=== PATIENT | female | born 1985 | race African-American/Black ===

== ENCOUNTER 2017-09-18 21:00 | Inpatient (IN) | payer OTHER ==
[2017-09-18 21:46] VITALS: BMI 38.7
[2017-09-18] MEDS ORDERED: Lactated Ringer's 1,000 ML IV SCH (22:44)
[2017-09-18] MEDS ORDERED: Promethazine HCl 25 MG/ML VIAL IM PRN (22:44)
[2017-09-18] MEDS ORDERED: Ondansetron HCl/PF 4 MG/2 ML Vial IVP PRN (22:44)
[2017-09-18] MEDS ORDERED: Acetaminophen 500 MG TAB PO PRN (22:44)
[2017-09-18 22:55] LABS: Hemoglobin 12.4 g/dL (12.0-16.0); Mean Corpuscular HGB CONC 33.2 g/dL (32.0-36.0); Mean Corpuscular Hemoglobin 29.7 pg (27.0-31.0); Mean Corpuscular Volume 89.5 fL (78.0-98.0); Mean Platelet Volume 9.9 fL (7.4-10.4); Platelet Count 211 thou/uL (130-400); RBC Distribution Width 12.2 % (11.5-14.5); Red Blood Cell (RBC) Count 4.16 mill/uL (4.20-5.40); White Blood Cell (WBC) Count 6.1 thou/uL (4.8-10.8)
[2017-09-18] MEDS ORDERED: Misoprostol 200 MCG TAB RC PRN (23:00)
[2017-09-18] MEDS ORDERED: NS w/ Oxytocin 10 units 500 ML IV SCH (23:00)
[2017-09-18] MEDS ORDERED: Lidocaine 1% (PF) 30 ML VIAL SC PRN (23:00)
[2017-09-18] MEDS ORDERED: Ibuprofen 800 MG TAB PO PRN (23:00)
[2017-09-18] MEDS ORDERED: hydrALAZINE 20 MG/ML VIAL ONE (23:10)
[2017-09-18] MEDS: hydrALAZINE 20 MG/ML VIAL SLOW IVP PRN (23:17)
[2017-09-18] MEDS: Lactated Ringer's 1,000 ML IV SCH (23:28)
[2017-09-18] MEDS: Misoprostol 100 MCG TAB VAG SCH (23:30)
[2017-09-18 23:35] LABS: ALT (SGPT) 9 U/L (8-55); AST (SGOT) 13 U/L (5-34); Albumin 3.3 g/dL (3.5-5.0); Alkaline Phosphatase 116 U/L (40-150); Anion Gap 16 mmol/L (10-20); BUN (Urea Nitrogen) 7 mg/dL (7.0-18.7); Bilirubin, Total 0.2 mg/dL (0.2-1.2); Calc. Creatinine Clearance 180 mL/min (70-130); Calcium 8.7 mg/dL (7.8-10.44); Carbon Dioxide 19 mmol/L (22-29); Chloride 107 mmol/L (98-107); Estimated GFR-MDRD Greater than 90; Globulin 3.1 g/dL (2.4-3.5); Glucose 90 mg/dL (70-105); Protein, Total 6.4 g/dL (6.0-8.3); Sodium 138 mmol/L (136-145)
[2017-09-18 23:36] LABS: HBSAg Index 0.17 S/CO (0-0.99); Hep B Surf Ag Non-Reactive S/CO (NonReactive); Syphilis Antibody Nonreactive (Nonreactive); Syphilis Antibody Index 0.05 S/CO (<1.00 Non-Reactive)
[2017-09-19] MEDS: hydrALAZINE 20 MG/ML VIAL SLOW IVP PRN ×5 (01:07→13:53)
[2017-09-19 01:11] LABS: Amphetamine Not Detected (NotDetected); Barbiturates Screen Not Detected (NotDetected); Benzodiazepine Screen Not Detected (NotDetected); Cocaine Metabolite Screen Not Detected (NotDetected); Medtox Control Line Valid? VALID (VALID); Medtox Reader # READER 4; Methadone Not Detected (NotDetected); Methamphetamine Not Detected (NotDetected); Opiate Screen Not Detected (NotDetected); Oxycodone Screen Not Detected (NotDetected); Phencyclidine (PCP) Not Detected (NotDetected); THC/Cannabinoid Screen Not Detected (NotDetected); Tricyclic Screen Not Detected (NotDetected)
[2017-09-19] MEDS: NS w/ Oxytocin 10 units 500 ML IV SCH ×2 (02:32→23:01)
[2017-09-19] MEDS: Misoprostol 100 MCG TAB VAG SCH ×5 (02:36→23:01)
[2017-09-19] MEDS: Lactated Ringer's 1,000 ML IV SCH ×3 (05:36→23:00)
[2017-09-19] MEDS ORDERED: Butorphanol Tartrate 1 MG/ML VIAL ONE ×3 (06:40→10:13)
[2017-09-19] MEDS ORDERED: Butorphanol Tartrate 1 MG/ML VIAL SLOW IVP PRN (06:54)
[2017-09-19] MEDS ORDERED: Bupivacaine 0.5% 20 ML, fentaNYL Citrate/PF 400 MCG in Sodium Chloride 0.9% 72 ML EPIDURAL SCH (07:45)
[2017-09-19] MEDS ORDERED: DISCONTINUE ALL PREVIOUS NARCOTICS FS SCH (07:45)
[2017-09-19] MEDS: NS / Oxytocin 40 units/1000ml 1,000 ML IV SCH ×2 (13:53→14:47)
[2017-09-19] MEDS ORDERED: Lanolin Ointment 7 GM TUBE TOP PRN (15:00)
[2017-09-19] MEDS ORDERED: Methylergonovine 0.2 MG/ML VIAL IM PRN (15:00)
[2017-09-19] MEDS ORDERED: Zolpidem Tartrate 5 MG TAB PO PRN (15:00)
[2017-09-19] MEDS ORDERED: Sodium Chloride 0.9% 1,000 ML IV SCH (15:00)
[2017-09-19] MEDS ORDERED: Ondansetron HCl/PF 4 MG/2 ML Vial IVP PRN (15:00)
[2017-09-19] MEDS ORDERED: NS / Oxytocin 40 units/1000ml 1,000 ML IV SCH (15:00)
[2017-09-19] MEDS ORDERED: Preparation H Ointment 28 GM TUBE PR PRN (15:00)
[2017-09-19] MEDS ORDERED: diphenhydrAMINE 25 MG CAP PO PRN (15:00)
[2017-09-19] MEDS ORDERED: Promethazine HCl 25 MG/ML VIAL IM PRN (15:00)
[2017-09-19] MEDS ORDERED: Methylergonovine 0.2 MG TAB PO PRN (15:00)
[2017-09-19] MEDS ORDERED: Adacel (T-DAP) 0.5 ML VIAL IM SCH (15:00)
[2017-09-19] MEDS ORDERED: Bisacodyl 10 MG SUPP PR PRN (15:00)
[2017-09-19] MEDS ORDERED: HYDROcodone/Acetaminophen 5/325 mg Tablet PO PRN ×2 (15:00)
[2017-09-19] MEDS ORDERED: Milk Of Magnesia 30 ML UDCUP PO PRN (15:00)
[2017-09-19] MEDS ORDERED: Misoprostol 200 MCG TAB VAG PRN (15:03)
[2017-09-19] MEDS: Ferrous Sulfate 325 MG TAB PO SCH (15:52)
[2017-09-19] MEDS: Docusate Calcium (SURFAK) 240 MG CAP PO SCH (21:24)
[2017-09-19] MEDS: Ibuprofen 800 MG TAB PO SCH (21:24)
[2017-09-20] MEDS: Ibuprofen 800 MG TAB PO SCH ×3 (05:34→21:47)
[2017-09-20] MEDS: Misoprostol 100 MCG TAB VAG SCH ×5 (08:13→19:35)
[2017-09-20] MEDS: Lactated Ringer's 1,000 ML IV SCH ×3 (08:14→19:35)
[2017-09-20] MEDS: Ferrous Sulfate 325 MG TAB PO SCH ×2 (08:14→17:37)
[2017-09-20] MEDS: Docusate Calcium (SURFAK) 240 MG CAP PO SCH ×2 (09:00→21:47)
[2017-09-20] MEDS: Prenatal Vitamin 1 TAB PO SCH (09:00)
[2017-09-20] MEDS: NIFEdipine XL 60 MG TAB PO SCH (09:00)
[2017-09-20 20:37] VITALS: TEMP 98.1
[2017-09-20] MEDS: NS w/ Oxytocin 10 units 500 ML IV SCH (21:34)
[2017-09-21] MEDS: Misoprostol 100 MCG TAB VAG SCH ×2 (01:45→10:12)
[2017-09-21] MEDS: Lactated Ringer's 1,000 ML IV SCH (01:46)
[2017-09-21] MEDS: Ibuprofen 800 MG TAB PO SCH (05:50)
--- NOTE | 2017-09-21 07:13 | PDOC.PP ---
Post Progress Note Post Day #: 2 PO intake tolerated: yes Flatus: yes Ambulation: yes Vital Signs (12 hours) Temp Pulse Resp BP 09/20/17 23:50 57 L 16 120/57 L 09/20/17 20:03 98.1 F 67 18 149/67 H Weight Weight 226 lb - Physical Examination General: NAD Cardiovascular: no m/r/g, RRR Respiratory: clear to auscultation bilaterally, non-labored breathing Abdominal: + bowel sounds, lochia, no distention Extremities: negative homans (B) Neurological: no gross focal deficits Psychiatric: A&Ox3, normal affect Result Diagrams: 09/18/17 21:59 09/18/17 21:59 Additional Labs: Post Labs Blood Type B POSITIVE 09/18/17 21:59 Hep Bs Antigen Non-Reactive S/CO (NonReactive) 09/18/17 21:59 - Assessment/Plan ppd 2, dc home
[2017-09-21 09:27] VITALS: BP 130/77
[2017-09-21] MEDS: Ferrous Sulfate 325 MG TAB PO SCH (10:12)
[2017-09-21] MEDS: NIFEdipine XL 60 MG TAB PO SCH (10:13)
[2017-09-21] MEDS: Prenatal Vitamin 1 TAB PO SCH (10:13)
[2017-09-21] MEDS: Docusate Calcium (SURFAK) 240 MG CAP PO SCH (10:13)
--- NOTE | 2017-09-22 15:03 | DN ---
DELIVERY NOTE PREOPERATIVE DIAGNOSIS: Intrauterine at 40 weeks and 3 days with new diagnosis of gestatio nal hypertension, who presents for term induction of labor. POSTOPERATIVE DIAGNOSIS: Intrauterine at 40 weeks and 3 days with new diagnosis of gestati onal hypertension, who presents for term induction of labor. PROCEDURE: Spontaneous vaginal delivery over a first-degree laceration in the perineum. FINDINGS: Viable female infant weighing 2969 grams or 6 pounds 9 ounces, Apgars of 8 and 9. QUANTITATIVE BLOOD LOSS: 75 mL. DETAILS OF THE PROCEDURE: The patient presented to [facility] where she was a dmitted to the Labor and Delivery service. The patient underwent a normal and uneventful labor with normal cervical dilatation until she was found to be completely dilated. She was then allowed to pus h and was able to bring the baby down and delivered the baby in a vertex presentation without difficu lties. Once the head delivered in occiput anterior position, the shoulders followed spontaneously al landon with the rest of the baby's body. Once out the baby's mouth and nose were bulb suctioned. The c ord was clamped and cut and baby was handed to waiting attendants. Cord blood was collected. Gentle Fundal massage was performed and the placenta delivered intact without problems. Hemostasis was ass ured. Quantitative blood loss was calculated. Inspection of the cervix, vaginal vault, and perineum did not reveal any lacerations needing suturing. Once again, hemostasis was within normal limits an d the patient was allowed to recover in the labor and delivery room. Baby went to nursery
== END 2017-09-21 11:15 | disposition home or self-care (01) | DRG 775 ==
LOC: L&D 21:10 → 3SW 09-19 15:38
PROVIDERS: ADMIT Obstetrics & Gynecology; ATTEND Obstetrics & Gynecology
PROC: 10E0XZZ Delivery of Products of Conception, External Approach (ICD-10-PCS; principal; 2017-09-19)
PROC: 0HQ9XZZ Repair Perineum Skin, External Approach (ICD-10-PCS; 2017-09-19)
PROC: 3E033VJ Introduction of Other Hormone into Peripheral Vein, Percutaneous Approach (ICD-10-PCS; 2017-09-19)
PROC: 3E0P7VZ Introduction of Hormone into Female Reproductive, Via Natural or Artificial Opening (ICD-10-PCS; 2017-09-19)
DX: O13.4 Gestational [pregnancy-induced] hypertension without significant proteinuria, complicating childbirth (principal); O70.0 First degree perineal laceration during delivery; Z37.0 Single live birth; Z3A.40 40 weeks gestation of pregnancy
CPT/HCPCS: 80053; 80306; 81003; 84550; 85027; 86780; 86850; 86900; 86901; 87340; J0360; J0595; J2001; J3010; J3490; J7050